=== PATIENT | male | born 1965 | race Caucasian/White ===

== ENCOUNTER → 2024-01-17 07:53 | Outpatient (REF) | payer BC, SELFPAY ==
[2024-01-17 09:58] LABS: TSH 3.44 uIU/ml (0.47-4.68)
== END ==
LOC: REG 07:53
PROVIDERS: ATTENDING PHYSICIAN Physician Assistant Medical
DX: E03.9 Hypothyroidism, unspecified (principal)
CPT/HCPCS: 36415; 84443

== ENCOUNTER → 2024-11-09 07:38 | Outpatient (REF) | payer BC, SELFPAY ==
[2024-11-09 08:37] LABS: % Basophils 0.7 % (0-2); % Eosinophils 1.9 % (0-6); % Immature Granulocytes 0.4 % (0-0.5); % Lymphocytes 40.4 % (20.5-51.1); % Monocytes 10.2 % (1.7-9.3); % Neutrophils 46.4 % (42.2-75.2); Absolute Eosinophils 0.1 10^3/uL (0-0.7); Absolute Lymphocytes 2.2 10^3/uL (1.2-3.4); Absolute Monocytes 0.6 10^3/uL (0.1-0.6); Absolute Neutrophils 2.5 10^3/uL (1.4-6.5); Hematocrit 41.6 % (39.0-52.0); Hemoglobin 14.3 g/dL (13.0-18.0); Mean Corp Hgb Conc. 34.4 g/dL (33.0-37.0); Mean Corpuscular Hgb 29.1 pg (27.0-31.0); Mean Corpuscular Volume 84.7 fL (80.0-94.0); Mean Platelet Volume 9.9 fL (7.4-10.4); Nucleated Red Blood Cells % 0 % (-); Platelet Count 194 10^3/uL (130-400); Red Blood Cell Count 4.91 10^6/uL (4.70-6.10); Red Cell Dist. Width 11.8 % (11.5-14.5); White Blood Cell Count 5.4 10^3/uL (4.8-10.8)
[2024-11-09 09:27] LABS: ALT (SGPT) 60 U/L (0-50); AST (SGOT) 44 U/L (17-59); Albumin 4.3 g/dl (3.5-5.0); Alkaline Phosphatase 44 U/L (38-126); Blood Urea Nitrogen 21 mg/dl (9-20); Carbon Dioxide 28 mmol/L (22-30); Chloride 104 mmol/L (98-107); Glucose 114 mg/dl (70-99); HDL Cholesterol 40 mg/dl; LDL Cholesterol, Calculated 78 mg/dl; Potassium 4.3 mmol/L (3.5-5.1); Sodium 140 mmol/L (135-145); Total Bilirubin 0.6 mg/dl (0.2-1.3); Total Cholesterol 140 mg/dl (50-199); Total Protein 6.7 g/dl (6.3-8.2); Triglyceride 111 mg/dl (10-149); Very Low Density Lipoprotein 22 mg/dl (0-30); eGFR > 60.00
[2024-11-09 09:34] LABS: Glycohemoglobin (HgbA1c) 5.4 % (4.0-5.6)
[2024-11-09 09:42] LABS: TSH Reflex To Free T4 6.23 uIU/ml (0.47-4.68)
[2024-11-09 10:10] LABS: Free T4 0.84 ng/dl (0.78-2.19)
[2024-11-10 06:43] LABS: Lipoprotein a (Lp a) 22 mg/dL (<=29)
[2024-11-10 06:50] LABS: Apolipoprotein B 76 mg/dL (66-133)
== END ==
LOC: REG 07:38
PROVIDERS: ATTENDING PHYSICIAN Internal Medicine Interventional Cardiology; FAMILY PHYSICIAN Family Medicine
DX: I21.02 ST elevation (STEMI) myocardial infarction involving left anterior descending coronary artery (principal); I10 Essential (primary) hypertension; E78.2 Mixed hyperlipidemia; R73.09 Other abnormal glucose
CPT/HCPCS: 36415; 80053; 80061; 82172; 83036; 83695; 84439; 84443; 85025

== ENCOUNTER → 2025-05-21 07:20 | Outpatient (REF) | payer BC, SELFPAY ==
[2025-05-21 09:34] LABS: PSA, Total - Screen 0.78 ng/ml (0.0-4.0)
== END ==
LOC: REG 07:20
PROVIDERS: ATTENDING PHYSICIAN Physician Assistant Medical
DX: E03.9 Hypothyroidism, unspecified (principal); Z00.01 Encounter for general adult medical examination with abnormal findings
CPT/HCPCS: 36415; 84439; 84443; G0103

== ENCOUNTER → 2025-09-07 07:53 | Outpatient (REF) | payer BC, SELFPAY ==
[2025-09-07 09:36] LABS: ALT (SGPT) 30 U/L (0-50); AST (SGOT) 31 U/L (17-59); Albumin 4.7 g/dl (3.5-5.0); Alkaline Phosphatase 39 U/L (38-126); Blood Urea Nitrogen 19 mg/dl (9-20); Calcium 9.3 mg/dl (8.4-10.2); Carbon Dioxide 28 mmol/L (22-30); Chloride 103 mmol/L (98-107); Glucose 112 mg/dl (70-99); HDL Cholesterol 42 mg/dl; LDL Cholesterol, Calculated 83 mg/dl; Potassium 4.3 mmol/L (3.5-5.1); Sodium 140 mmol/L (135-145); Total Protein 7.4 g/dl (6.3-8.2); Very Low Density Lipoprotein 22 mg/dl (0-30); eGFR > 60.00
[2025-09-07 09:58] LABS: PSA, Total - Screen 0.96 ng/ml (0.0-4.0)
== END ==
LOC: REG 07:53
PROVIDERS: ATTENDING PHYSICIAN Physician Assistant Medical; REFERRING PHYSICIAN Internal Medicine Interventional Cardiology
DX: I21.02 ST elevation (STEMI) myocardial infarction involving left anterior descending coronary artery (principal); I10 Essential (primary) hypertension; E78.2 Mixed hyperlipidemia; R73.09 Other abnormal glucose; E03.9 Hypothyroidism, unspecified; Z00.01 Encounter for general adult medical examination with abnormal findings
CPT/HCPCS: 36415; 80053; 80061; 84439; 84443; G0103